=== PATIENT | female | born 1960 | race Caucasian/White ===

== ENCOUNTER 2017-05-08 12:15 | Emergency (ER) | payer MEDICARE, OTHER ==
[2017-05-08] MEDS ORDERED: Famotidine 20 MG Tab PO ONE (12:19)
--- NOTE | 2017-05-08 12:24 | EDM.PDOC ---
ED HPI GENERAL MEDICAL PROBLEM - General Chief Complaint: Allergic Reaction Stated Complaint: ALLERGIC REACTION Time Seen by Provider: 05/08/17 12:15 Source of Information: Reports: Patient, EMS History Limitations: Reports: Other (No call with patient report from the [facility] who referred patient to the ER.) - History of Present Illness INITIAL COMMENTS - FREE TEXT/NARRATIVE: 56 yo female took Keflex today after a tooth cleaning for prophylaxis of a R shoulder replacement. Developed hives and presented to the [facility] and got a dose of subcut Epi, EMS transferred and administered Benedryl 50 mg IV en route. Is now feeling much better, but not yet back to baseline. Denies difficulty breathing or swallowing. No hx of allergy to Keflex. 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) (Benedryl/Epi) - Related Data Allergies Allergy/AdvReac Type Severity Reaction Status Date / Time amoxicillin [From Augmentin] Allergy Vomiting Verified 05/08/17 12:40 cephalexin [From Keflex] Allergy Anaphylactic Verified 05/08/17 12:40 Shock clavulanic acid Allergy Vomiting Verified 05/08/17 12:40 [From Augmentin] infliximab [From Remicade] Allergy Hives Verified 05/08/17 12:40 leflunomide [From Arava] Allergy Hives Verified 05/08/17 12:40 Home Meds: Home Meds Gabapentin [Neurontin] 600 mg PO BEDTIME 05/08/17 [History] [place]-3/DHA/Epa/Fish Oil [Fish Oil 1,400 MG Softgel] 2 each PO BID 05/08/17 [ History] predniSONE [Prednisone] 5 mg PO DAILY 05/08/17 [History] ED ROS ALLERGIC REACTION - Review of Systems Review Of Systems: See Below Constitutional: Reports: No Symptoms HEENT: Reports: No Symptoms Respiratory: Reports: No Symptoms Cardiovascular: Reports: No Symptoms Endocrine: Reports: No Symptoms GI/Abdominal: Reports: No Symptoms : Reports: No Symptoms Musculoskeletal: Reports: No Symptoms Skin: Reports: Erythema, Urticaria Neurological: Reports: No Symptoms Psychiatric: Reports: No Symptoms ED EXAM GENERAL NO PERIP PULSE - Physical Exam Exam: See Below Exam Limited By: No Limitations General Appearance: Alert, WD/WN, Anxious, Mild Distress Eye Exam: Bilateral Eye: Normal Inspection Ears: Normal External Exam, Normal Canal, Hearing Grossly Normal, Normal TMs Nose: Normal Inspection, Normal Mucosa, No Blood Throat/Mouth: Normal Inspection, Normal Lips, Normal Teeth, Normal Oropharynx, Normal Voice, No Airway Compromise Head: Atraumatic, Normocephalic Neck: Normal Inspection, Supple, Non-Tender Respiratory/Chest: No Respiratory Distress, Lungs Clear, Normal Breath Sounds, No Accessory Muscle Use Cardiovascular: Regular Rate, Rhythm, No Edema GI/Abdominal: Soft, Non-Tender Back Exam: Normal Inspection Extremities: Normal Inspection, Normal Range of Motion, Non-Tender, No Pedal Edema Neurological: Alert, Oriented, CN II-XII Intact, Normal Cognition, Normal Gait, No Motor/Sensory Deficits Psychiatric: Normal Affect, Normal Mood Skin Exam: Warm, Dry, Intact, Erythema, Rash (scattered hives) Lymphatic: No Adenopathy Course - Orders/Labs/Meds Meds: Medications Discontinued Medications Generic Name Dose Route Start Last Admin Trade Name Freq PRN Reason Stop Dose Admin Famotidine 40 mg 05/08/17 12:19 05/08/17 12:39 Pepcid PO 05/08/17 12:20 40 mg ONETIME ONE Administration Departure - Departure Time of Disposition: 13:00 Disposition: Home, Self-Care 01 Condition: Good Clinical Impression: Urticaria due to drug allergy - Discharge Information Forms: ED Department Discharge Additional Instructions: Take diphenhydramine 50 mg every 4 hrs as needed today for itching/rash. Take famotidine 20 mg by mouth tonight at bedtime, then every 12 hrs as needed. Avoid Keflex. Discuss with your surgeon if he wants you to be taking antibiotics before dental work, and if so what? Recheck as needed.
[2017-05-08 13:17] VITALS: BP 116/63
== END 2017-05-08 13:10 | disposition home or self-care (01) ==
LOC: FB.ED 12:15
DX: L50.0 Allergic urticaria (principal); T36.1X5A Adverse effect of cephalosporins and other beta-lactam antibiotics, initial encounter; Z88.8 Allergy status to other drugs, medicaments and biological substances; Z79.899 Other long term (current) drug therapy; Z88.1 Allergy status to other antibiotic agents
CPT/HCPCS: 99283; A9270

== ENCOUNTER 2019-04-23 11:13 | Emergency (ER) | payer MEDICARE, OTHER, BC ==
[2019-04-23] MEDS ORDERED: Sodium Chloride 0.9% 1,000 ML IV ONE (11:55)
--- NOTE | 2019-04-23 11:58 | EDM.PDOC ---
ED HPI GENERAL MEDICAL PROBLEM - General Chief Complaint: Neuro Symptoms/Deficits Stated Complaint: DIZZY Time Seen by Provider: 04/23/19 11:30 Source of Information: Reports: Patient History Limitations: Reports: No Limitations - History of Present Illness INITIAL COMMENTS - FREE TEXT/NARRATIVE: 58-year-old female who reports that at approximately 10 AM today she was at the grocery store and she began to feel a little off and was feeling sweaty. She continued to do her shopping and interacted with people in the store but then began to feel somewhat dizzy and more sweaty. She asked he felt off balance. She had no chest pain or shortness of breath at this time. She did not feel that her heart was beating fast or slow at this time. She finished up her shopping a left store at that time and went to her car and sat down for a while. Her symptoms really did not seem to improve she managed to drive herself home. At home she got her 's help to help her into the house and she took off her clothing and laid on her bed under the family under the ceiling fan. At this point she reports that she had room spinning dizziness and had to sit up. She continued to ill dizzy and then had nausea and had multiple dry heaving's in the bathroom. At this point, her called 911. EMS arrived and transported the patient to the emergency department for evaluation. Upon arrival here and upon my evaluation of the patient she is feeling much better. She still has some mild dizziness with changes in position but she reports she feels she denied any pain to me on my evaluation of her. She would rate her pain as a 0/10. Her nausea has resolved. She reports that she felt completely normal prior to this. She has had no prodromal symptoms. There are no other associated signs or symptoms. There are no other modifying factors. Onset: Today (10 AM) Duration: Improving Location: Reports: Other (No real pain at my evaluation the patient. 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 R frontal headache Pain Score (Numeric/FACES): 4 - Related Data Allergies Allergy/AdvReac Type Severity Reaction Status Date / Time amoxicillin [From Augmentin] Allergy Vomiting Verified 04/23/19 11:32 cephalexin [From Keflex] Allergy Anaphylactic Verified 04/23/19 11:32 Shock clavulanic acid Allergy Vomiting Verified 04/23/19 11:32 [From Augmentin] infliximab [From Remicade] Allergy Hives Verified 04/23/19 11:32 leflunomide [From Arava] Allergy Hives Verified 04/23/19 11:32 Home Meds: Home Meds Folic Acid 1 mg PO DAILY 05/08/17 [History] Gabapentin [Neurontin] 600 mg PO BEDTIME 05/08/17 [History] predniSONE [Prednisone] 5 mg PO DAILY 05/08/17 [History] Clindamycin HCl [Cleocin] 600 mg PO ASDIRECTED 04/23/19 [History] Meloxicam 15 mg PO DAILY 04/23/19 [History] Venlafaxine [Effexor XR] 75 mg PO DAILY 04/23/19 [History] buPROPion [buPROPion XL] 150 mg PO DAILY 04/23/19 [History] Past Medical History Musculoskeletal History: Reports: Fibromyalgia, RA Neurological History: Reports: Neuropathy, Peripheral, Other (See Below) Other Neuro History: Insomnia Psychiatric History: Reports: Depression - Past Surgical History Head Surgeries/Procedures: Reports: None HEENT Surgical History: Reports: Tonsillectomy GI Surgical History: Reports: Appendectomy Female Surgical History: Reports: Hysterectomy Musculoskeletal Surgical History: Reports: Shoulder Replacement, Other (See Below) Other Musculoskeletal Surgeries/Procedures:: Right foot surgery Social & Family History - Tobacco Use Smoking Status *Q: Unknown Ever Smoked (Nonsmoker) - Caffeine Use Caffeine Use: Reports: Soda - Alcohol Use Alcohol Use History: No Alcohol Use in Last Twelve Months: No Alcohol Use Comment: No alcohol use for the past 7 years. 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 Patient also on methotrexate weekly) - Physical Exam Exam: See Below Exam Limited By: No Limitations General Appearance: Alert, WD/WN, No Apparent Distress Eye Exam: Bilateral Eye: EOMI, Normal Inspection, PERRL Ears: Normal External Exam, Hearing Grossly Normal Nose: Normal Inspection, Normal Mucosa, No Blood Throat/Mouth: Normal Lips, Normal Voice, No Airway Compromise, Other (Dry mucous membranes) Head Exam: Atraumatic, Normocephalic Neck: Normal Inspection, Supple, Non-Tender, Full Range of Motion Respiratory/Chest: No Respiratory Distress, Lungs Clear, Normal Breath Sounds, No Accessory Muscle Use, Chest Non-Tender Cardiovascular: Normal Peripheral Pulses, Regular Rate, Rhythm, No JVD, No Murmur GI/Abdominal: Normal Bowel Sounds, Soft, Non-Tender, No Organomegaly, No Mass Neuro Exam (Abbreviated): Alert, Oriented, CN II-XII Intact, Normal Cognition, No Motor/Sensory Deficits Back Exam: Normal Inspection, Full Range of Motion Extremities: Normal Inspection, Normal Range of Motion, Non-Tender, No Pedal Edema, Normal Capillary Refill Skin Exam: Warm, Dry, Intact, Normal Color, No Rash EKG INTERPRETATION EKG Date: 04/23/19 Time: 11:18 Rhythm: NSR Rate (Beats/Min): 68 Kiana: Normal P-Wave: Present QRS: Normal ST-T: Normal QT: Normal Comparison: NA - No Prior EKG EKG Interpretation Comments: Normal EKG. Course - Vital Signs Last Recorded V/S: Last Vital Signs Temp 36.4 C 04/23/19 11:13 Pulse 73 04/23/19 11:13 Resp 18 04/23/19 11:13 BP 141/92 H 04/23/19 11:13 Pulse Ox 97 04/23/19 11:13 Orthostatic Blood Pressure [ 128/74 Standing] Orthostatic Blood Pressure [ 150/70 Sitting] Orthostatic Blood Pressure [ 134/79 Supine] - Orders/Labs/Meds Orders: Active Orders 24 hr Category Date Time Status EKG Documentation Completion [RC] ASDIRECTED Care 04/23/19 11:55 Active EKG 12 Lead [EK] Routine Ther 04/23/19 11:54 Ordered Labs: Laboratory Tests 04/23/19 04/23/19 04/23/19 Range/Units 11:25 11:25 11:25 WBC 9.5 (4.5-12.0) X10-3/uL RBC 4.59 (3.23-5.20) x10(6)uL Hgb 13.4 (11.5-15.5) g/dL Hct 40.0 (30.0-51.3) % MCV 87.3 (80-96) fL MCH 29.3 (27.7-33.6) pg MCHC 33.6 (32.2-35.4) g/dL RDW 14.1 (11.5-15.5) % Plt Count 310 (125-369) X10(3)uL MPV 7.9 (7.4-10.4) fL Neut % (Auto) 80.7 (46-82) % Lymph % (Auto) 13.1 (13-37) % [place] % (Auto) 5.0 (4-12) % Eos % (Auto) 1 (1.0-5.0) % Baso % (Auto) 1 (0-2) % Neut # (Auto) 7.7 (1.6-8.3) # Lymph # (Auto) 1.2 (0.6-5.0) # [place] # (Auto) 0.5 (0.0-1.3) # Eos # (Auto) 0.1 (0.0-0.8) # Baso # (Auto) 0.0 (0.0-0.2) # Sodium 137 (135-145) mmol/L Potassium 4.1 (3.5-5.3) mmol/L Chloride 102 (100-110) mmol/L Carbon Dioxide 24 (21-32) mmol/L BUN 14 (7-18) mg/dL Creatinine 0.8 (0.55-1.02) mg/dL Est Cr Clr Drug Dosing 64.58 mL/min Estimated GFR (MDRD) > 60 (>60) BUN/Creatinine Ratio 17.5 (9-20) Glucose 99 (80-116) mg/dL Calcium 9.1 (8.6-10.2) mg/dL Magnesium 2.0 (1.8-2.5) mg/dL Total Bilirubin 0.5 (0.1-1.3) mg/dL AST 26 H (5-25) IU/L ALT 22 (12-36) U/L Alkaline Phosphatase 83 (56-112) IU/L Troponin I (<0.017-0.056) ng/mL C-Reactive Protein < 0.2 L (0.5-0.9) mg/dL Total Protein 7.1 (6.0-8.0) g/dL Albumin 3.6 (3.2-4.6) g/dL Globulin 3.5 g/dL Albumin/Globulin Ratio 1.0 TSH, Ultra Sensitive 1.00 (0.36-3.74) IU/mL Urine Color (YELLOW) Urine Appearance (CLEAR) Urine pH (5.0-6.5) Ur Specific Grant (1.010-1.025) Urine Protein (NEGATIVE) mg/dL Urine Glucose (UA) (NORMAL) mg/dL Urine Ketones (NEGATIVE) mg/dL Urine Occult Blood (NEGATIVE) Urine Nitrite (NEGATIVE) Urine Bilirubin (NEGATIVE) Urine Urobilinogen (NEGATIVE) mg/dL Ur Leukocyte Esterase (NEGATIVE) Urine RBC (0-5) Urine WBC (0-5) Ur Squamous Epith Cells (NS,R,O) Urine Bacteria (NS) 04/23/19 04/23/19 Range/Units 11:25 13:43 WBC (4.5-12.0) X10-3/uL RBC (3.23-5.20) x10(6)uL Hgb (11.5-15.5) g/dL Hct (30.0-51.3) % MCV (80-96) fL MCH (27.7-33.6) pg MCHC (32.2-35.4) g/dL RDW (11.5-15.5) % Plt Count (125-369) X10(3)uL MPV (7.4-10.4) fL Neut % (Auto) (46-82) % Lymph % (Auto) (13-37) % [place] % (Auto) (4-12) % Eos % (Auto) (1.0-5.0) % Baso % (Auto) (0-2) % Neut # (Auto) (1.6-8.3) # Lymph # (Auto) (0.6-5.0) # [place] # (Auto) (0.0-1.3) # Eos # (Auto) (0.0-0.8) # Baso # (Auto) (0.0-0.2) # Sodium (135-145) mmol/L Potassium (3.5-5.3) mmol/L Chloride (100-110) mmol/L Carbon Dioxide (21-32) mmol/L BUN (7-18) mg/dL Creatinine (0.55-1.02) mg/dL Est Cr Clr Drug Dosing mL/min Estimated GFR (MDRD) (>60) BUN/Creatinine Ratio (9-20) Glucose (80-116) mg/dL Calcium (8.6-10.2) mg/dL Magnesium (1.8-2.5) mg/dL Total Bilirubin (0.1-1.3) mg/dL AST (5-25) IU/L ALT (12-36) U/L Alkaline Phosphatase (56-112) IU/L Troponin I < 0.017 L (<0.017-0.056) ng/mL C-Reactive Protein (0.5-0.9) mg/dL Total Protein (6.0-8.0) g/dL Albumin (3.2-4.6) g/dL Globulin g/dL Albumin/Globulin Ratio TSH, Ultra Sensitive (0.36-3.74) IU/mL Urine Color Yellow (YELLOW) Urine Appearance Clear (CLEAR) Urine pH 5.0 (5.0-6.5) Ur Specific Grant 1.015 (1.010-1.025) Urine Protein Negative (NEGATIVE) mg/dL Urine Glucose (UA) Normal (NORMAL) mg/dL Urine Ketones Negative (NEGATIVE) mg/dL Urine Occult Blood Negative (NEGATIVE) Urine Nitrite Negative (NEGATIVE) Urine Bilirubin Negative (NEGATIVE) Urine Urobilinogen Normal (NEGATIVE) mg/dL Ur Leukocyte Esterase Negative (NEGATIVE) Urine RBC 0-5 (0-5) Urine WBC 0-5 (0-5) Ur Squamous Epith Cells Occasional (NS,R,O) Urine Bacteria Rare H (NS) Meds: Medications Discontinued Medications Generic Name Dose Route Start Last Admin Trade Name Freq PRN Reason Stop Dose Admin Sodium Chloride 1,000 mls @ 999 mls/hr 04/23/19 11:55 04/23/19 12:11 Normal Saline IV 04/23/19 12:55 999 mls/hr .BOLUS ONE Administration - Re-Assessments/Exams Free Text/Narrative Re-Assessment/Exam: 04/23/19 14:17: Patient does have a mild right-sided headache but no other symptoms. Her nausea has completely resolved. Her dizziness has completely resolved. She has been ambulating around the emergency department and really wants to go home. Her blood tests are reassuringly normal. Her EKG is reassuringly normal. She has remained in a normal sinus rhythm while being monitored here. She did receive a 1 L bolus of normal saline and her urine was somewhat concentrated and there had have been a component of dehydration causing this patient's episode. It appears that this episode was a vasovagal type episode. Apparently, the patient also received Zofran 4 mg ODT and Versed 0.5 IM by the EMS staff on the way in. In any event, this episode seems to have passed and her exam, blood tests urine tests and EKG appear normal and the patient wishes to be discharged. I have advised follow-up with her primary doctor and to increase her fluid intake. Departure - Departure Time of Disposition: 14:20 Disposition: Home, Self-Care 01 Condition: Good (Stable) Clinical Impression: Vasovagal episode, Dizziness Vomiting Qualifiers: Vomiting type: unspecified Vomiting Intractability: non-intractable Nausea presence: with nausea Qualified Code(s): R11.2 - Nausea with vomiting, unspecified - Discharge Information Instructions: Nausea and Vomiting, Adult, [id number], Dizziness, [id number] , Near-Syncope, [id number] Referrals: Mishel Everett, [facility] [Primary Care Provider] - Forms: ED Department Discharge Additional Instructions: Your blood tests, urine test and EKG were reassuringly normal. As we discussed, you appear to have had a vasovagal episode or near passout spell. I am unsure what caused this episode but it appears to be associated with no significant problem. You should rest. You should drink plenty of fluids. Follow-up with your primary doctor. Back to the emergency department for worsening dizziness, unrelenting vomiting, fever, worsening headache, recurrent pass out spells or near pass out spells or any other concerning sign or symptom. - My Orders Last 24 Hours: My Active Orders 04/23/19 11:54 EKG 12 Lead [EK] Routine 04/23/19 11:55 EKG Documentation Completion [RC] ASDIRECTED - Assessment/Plan Last 24 Hours: My Active Orders 04/23/19 11:54 EKG 12 Lead [EK] Routine 04/23/19 11:55 EKG Documentation Completion [RC] ASDIRECTED
[2019-04-24 11:38] VITALS: BP 142/75
== END 2019-04-23 14:30 | disposition home or self-care (01) ==
LOC: FB.ED 11:13
DX: R55 Syncope and collapse (principal); R11.2 Nausea with vomiting, unspecified; F32.9 Major depressive disorder, single episode, unspecified; Z88.1 Allergy status to other antibiotic agents; Z88.8 Allergy status to other drugs, medicaments and biological substances; Z79.899 Other long term (current) drug therapy; Z98.890 Other specified postprocedural states; Z90.710 Acquired absence of both cervix and uterus
CPT/HCPCS: 80053; 81001; 83735; 84443; 84484; 85025; 86140; 93005; 96360; 99284; J7030

== ENCOUNTER 2020-04-12 15:57 | Inpatient (IN) | payer MEDICARE, OTHER ==
--- NOTE | 2020-04-12 16:08 | EDM.PDOC ---
ED HPI GENERAL MEDICAL PROBLEM - General Stated Complaint: VOMITING Time Seen by Provider: 04/12/20 16:08 Source of Information: Reports: Patient History Limitations: Reports: No Limitations - History of Present Illness INITIAL COMMENTS - FREE TEXT/NARRATIVE: 59-year-old female who had acute onset of epigastric and right upper quadrant abdominal pain with some radiation into her right flank at approximately noon today. She had felt completely well prior to this. She had been eating and drinking normally. She states that she cooked a brunch that was a skillet-type breakfast and she ate that at noon with her mother and almost immediately after eating the meal she developed the pain in her upper abdomen and radiating to the right side. This pain has been persistent since that time and has actually worsened over time with vomiting 1. She reports the pain as a 10/10. She has had some diaphoresis associated with this. She has ongoing nausea but no further vomiting after the initial emesis. She has had no diarrhea. She has reported normal bowel movements. No dysuria or hematuria. No cough. No nasal congestion. No sore throat. She has had no fevers or chills. No alleviating factors. The pain is worse with palpation and with movement. There are no other associated signs or symptoms. There are no other modifying factors. 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) (Nothing) Upper Abdomen Pain Score (Numeric/FACES): 10 - Related Data Allergies Allergy/AdvReac Type Severity Reaction Status Date / Time amoxicillin [From Augmentin] Allergy Vomiting Verified 04/23/19 11:32 cephalexin [From Keflex] Allergy Anaphylactic Verified 04/23/19 11:32 Shock Cephalosporins Allergy Anaphylactic Verified 04/12/20 16:55 Shock clavulanic acid Allergy Vomiting Verified 04/23/19 11:32 [From Augmentin] infliximab [From Remicade] Allergy Hives Verified 04/12/20 16:55 leflunomide [From Arava] Allergy Hives Verified 04/12/20 16:55 Home Meds: Home Meds Folic Acid 1 mg PO DAILY 05/08/17 [History] Gabapentin [Neurontin] 600 mg PO BEDTIME 05/08/17 [History] predniSONE [Prednisone] 5 mg PO DAILY 05/08/17 [History] Meloxicam 15 mg PO DAILY 04/23/19 [History] Venlafaxine [Effexor XR] 75 mg PO DAILY 04/23/19 [History] buPROPion [buPROPion XL] 150 mg PO DAILY 04/23/19 [History] Past Medical History Musculoskeletal History: Reports: Fibromyalgia, RA Other Musculoskeletal History: hx fx L foot, Neurological History: Reports: Neuropathy, Peripheral, Other (See Below) Other Neuro History: Insomnia Psychiatric History: Reports: Anxiety, Depression Endocrine/Metabolic History: Reports: Obesity/BMI 30+ - Infectious Disease History Infectious Disease History: Reports: Chicken Pox - Past Surgical History HEENT Surgical History: Reports: Tonsillectomy GI Surgical History: Reports: Appendectomy, Hernia, Inguinal (Right inguinal hernia repair) Female Surgical History: Reports: Hysterectomy Musculoskeletal Surgical History: Reports: Shoulder Replacement, Other (See Below) Other Musculoskeletal Surgeries/Procedures:: Right foot surgery Social & Family History - Tobacco Use Smoking Status *Q: Unknown Ever Smoked (Nonsmoker) - Caffeine Use Caffeine Use: Reports: Soda - Alcohol Use Alcohol Use History: No - Living Situation & Occupation Living situation: Reports: 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) ED ROS GENERAL - Review of Systems Review Of Systems: See Below Constitutional: Reports: Diaphoresis HEENT: Reports: No Symptoms Respiratory: Reports: No Symptoms Cardiovascular: Reports: No Symptoms GI/Abdominal: Reports: Nausea, Vomiting : Reports: Flank Pain (Mild right upper flank pain) Musculoskeletal: Reports: No Symptoms Skin: Reports: Diaphoresis Neurological: Reports: No Symptoms Hematologic/Lymphatic: Reports: No Symptoms Immunologic: Reports: Other (She is on biologic for her rheumatoid arthritis as well as methotrexate and prednisone) ED EXAM, GI/ABD - Physical Exam Exam: See Below Exam Limited By: No Limitations General Appearance: Alert, WD/WN, Moderate Distress (Appears in acute pain.) Eyes: Bilateral: Normal Appearance, EOMI Ears: Normal External Exam, Hearing Grossly Normal Nose: Normal Inspection, Normal Mucosa, No Blood Throat/Mouth: Normal Inspection, Normal Oropharynx, Normal Voice, No Airway Compromise Head: Atraumatic, Normocephalic Neck: Normal Inspection, Supple, Non-Tender, Full Range of Motion Respiratory/Chest: No Respiratory Distress, Lungs Clear, Normal Breath Sounds, No Accessory Muscle Use, Chest Non-Tender Cardiovascular: Normal Peripheral Pulses, Regular Rate, Rhythm, No Murmur GI/Abdominal Exam: Normal Bowel Sounds, Soft, No Mass, Guarding, Tender (In the epigastrium and right upper quadrant.). No: Rigid Back Exam: Normal Inspection, Full Range of Motion Extremities: Normal Inspection, Normal Range of Motion, Non-Tender, No Pedal Edema, Normal Capillary Refill Neurological: Alert, Oriented, CN II-XII Intact, Normal Cognition, No Motor/Sensory Deficits Psychiatric: Normal Affect Skin Exam: Warm, Dry, Intact, Normal Color, No Rash Lymphatic: No Adenopathy Course - Vital Signs Last Recorded V/S: Last Vital Signs Temp 36.4 C 04/12/20 16:00 Pulse 86 04/12/20 16:00 Resp 20 04/12/20 16:00 BP 124/84 04/12/20 16:00 Pulse Ox 99 04/12/20 16:00 - Orders/Labs/Meds Orders: Active Orders 24 hr Category Date Time Status Admission Status [Patient Status] [ADT] Routine ADT 04/12/20 20:20 Ordered Communication Order [RC] STAT Care 04/12/20 16:17 Active Abdomen Pelvis w Cont [CT] Stat Exams 04/12/20 17:41 Taken Sodium Chloride 0.9% [Normal Saline] 1,000 ml Med 04/12/20 16:30 Active IV ASDIRECTED Sodium Chloride 0.9% [Saline Flush] Med 04/12/20 16:15 Active 10 ml FLUSH ASDIRECTED PRN Peripheral IV Insertion Adult [OM.PC] Routine Oth 04/12/20 16:15 Ordered Medication Orders Sodium Chloride (Normal Saline) 1,000 mls @ 150 mls/hr IV ASDIRECTED AISHWARYA Last Admin: 04/12/20 16:56 Dose: 150 mls/hr Documented by: TRA Sodium Chloride (Saline Flush) 10 ml FLUSH ASDIRECTED PRN PRN Reason: Keep Vein Open Last Admin: 04/12/20 16:20 Dose: 10 ml Documented by: TRA Labs: Laboratory Tests 08/04/12/20 04/12/20 Range/Units 16:30 16:30 16:30 WBC 10.6 (4.5-12.0) X10-3/uL RBC 4.74 (3.23-5.20) x10(6)uL Hgb 13.4 (11.5-15.5) g/dL Hct 42.0 (30.0-51.3) % MCV 88.6 (80-96) fL MCH 28.2 (27.7-33.6) pg MCHC 31.8 L (32.2-35.4) g/dL RDW 14.4 (11.5-15.5) % Plt Count 336 (125-369) X10(3)uL MPV 7.5 (7.4-10.4) fL Neut % (Auto) 81.9 (46-82) % Lymph % (Auto) 11.7 L (13-37) % Dukes % (Auto) 5.3 (4-12) % Eos % (Auto) 1 (1.0-5.0) % Baso % (Auto) 0 (0-2) % Neut # (Auto) 8.7 H (1.6-8.3) # Lymph # (Auto) 1.2 (0.6-5.0) # Dukes # (Auto) 0.6 (0.0-1.3) # Eos # (Auto) 0.1 (0.0-0.8) # Baso # (Auto) 0.0 (0.0-0.2) # Sodium 143 (135-145) mmol/L Potassium 4.0 (3.5-5.3) mmol/L Chloride 103 (100-110) mmol/L Carbon Dioxide 31 (21-32) mmol/L BUN 13 (7-18) mg/dL Creatinine 0.8 (0.55-1.02) mg/dL Est Cr Clr Drug Dosing TNP Estimated GFR (MDRD) > 60 (>60) BUN/Creatinine Ratio 16.3 (9-20) Glucose 118 H (80-116) mg/dL Calcium 9.6 (8.6-10.2) mg/dL Magnesium 2.2 (1.8-2.5) mg/dL Total Bilirubin 0.4 (0.1-1.3) mg/dL AST 21 D (5-25) IU/L ALT 31 D (12-36) U/L Alkaline Phosphatase 85 (56-112) IU/L C-Reactive Protein 0.4 L (0.5-0.9) mg/dL Total Protein 7.5 (6.0-8.0) g/dL Albumin 4.0 (3.2-4.6) g/dL Globulin 3.5 g/dL Albumin/Globulin Ratio 1.1 Lipase 103 (73-393) U/L Meds: Medications Generic Name Dose Route Start Last Admin Trade Name Freq PRN Reason Stop Dose Admin Sodium Chloride 1,000 mls @ 150 mls/hr 04/12/20 16:30 04/12/20 16:56 Normal Saline IV 150 mls/hr ASDIRECTED AISHWARYA Administration Sodium Chloride 10 ml 04/12/20 16:15 04/12/20 16:20 Saline Flush FLUSH 10 ml ASDIRECTED PRN Administration Keep Vein Open Discontinued Medications Generic Name Dose Route Start Last Admin Trade Name Freq PRN Reason Stop Dose Admin Hydromorphone HCl 1 mg 04/12/20 16:16 04/12/20 16:31 Dilaudid IVPUSH 04/12/20 16:17 1 mg ONETIME ONE Administration Sodium Chloride 500 mls @ 999 mls/hr 04/12/20 16:16 04/12/20 16:30 Normal Saline IV 04/12/20 16:46 999 mls/hr .BOLUS ONE Administration Iopamidol 100 ml 04/12/20 17:54 04/12/20 18:11 Isovue-370 (76%) IV 04/12/20 17:55 75 ml . DIRECTED ONE Administration Ondansetron HCl 4 mg 04/12/20 16:16 04/12/20 16:30 Zofran IVPUSH 04/12/20 16:17 4 mg ONETIME ONE Administration Ondansetron HCl 4 mg 04/12/20 17:41 04/12/20 18:08 Zofran IVPUSH 04/12/20 17:42 4 mg ONETIME ONE Administration - Radiology Interpretation Free Text/Narrative:: CT scan of abdomen and pelvis showed intermediate grade small bowel obstruction with suspected transition point in the left mid abdomen. - Re-Assessments/Exams Free Text/Narrative Re-Assessment/Exam: 04/12/20 17:30: Patient with improvement in her abdominal pain. She still has nausea. Her blood tests are all reassuringly normal. There are no LFT abnormalities or elevation of her lipase. She does have reproducible pain and her mid upper abdomen and her right upper quadrant. There is no rigidity. I will send the patient for CT scan of her abdomen and pelvis to further evaluate this. I discussed this with the patient and she is in agreement with this plan. 04/12/20 19:30: Patient remains somewhat nauseated and still has belching. She has had no more vomiting. Her pain is currently had a 4-5/10. We have been formed by the radiology group, [facility], that they have had multiple emergency cases and that has caused a delay in the patient CT scan being read. We are awaiting the results of the CT scan. I have reviewed the CT scan and am concerned that there is a small bowel obstruction. She has remained hemodynamically stable. I will continue NPO status and IV fluid hydration. 04/12/20 20:05: CT scan of the abdomen and pelvis showed evidence of an intermediate grade small bowel obstruction with suspected transition point in the left mid abdomen. There was no free air. There was distended proximal small bowel and stomach. I will discuss this with the patient. She will need admission for bowel rest and IV fluids and surgical consultation tomorrow. 04/12/20 20:25: I discussed all of this with the patient and she has been followed by Dr. Flaherty in the past and she actually called him and discussed this with him and I discussed the case with him and although he is out of town and production hand, his recommendation was that the patient be admitted and he has convinced her to do this. I will admit the patient with bowel rest (NPO except ice chips that was okayed by Dr. Flaherty) and continued IV fluids and pain/nausea management. I am placing mission orders. Dr. Tucker will assume care the patient at 7 AM on 04/13/2020. Dr. Garland is to be consult in the morning per Dr. Flaherty. I will also give the patient a stress dose of steroids (Solu-Cortef 100 mg IV) Departure - Departure Time of Disposition: 20:21 Disposition: Refer to Observation Condition: Fair (Stable) Clinical Impression: Small bowel obstruction, Immunocompromised state Abdominal pain Qualifiers: Abdominal location: upper abdomen, unspecified Qualified Code(s): R10.10 - Upper abdominal pain, unspecified - Discharge Information Referrals: Mishel Everett, HEAT SET OPERATOR [Primary Care Provider] - Sepsis Event Note (ED) - Focused Exam Vital Signs: Vital Signs Temp Pulse Resp BP Pulse Ox 04/12/20 16:00 36.4 C 86 20 124/84 99 - My Orders Last 24 Hours: My Active Orders 04/12/20 16:15 Sodium Chloride 0.9% [Saline Flush] 10 ml FLUSH ASDIRECTED PRN Peripheral IV Insertion Adult [OM.PC] Routine 04/12/20 16:17 Communication Order [RC] STAT 04/12/20 16:30 Sodium Chloride 0.9% [Normal Saline] 1,000 ml IV ASDIRECTED 04/12/20 17:41 Abdomen Pelvis w Cont [CT] Stat 04/12/20 20:20 Admission Status [Patient Status] [ADT] Routine - Assessment/Plan Last 24 Hours: My Active Orders 04/12/20 16:15 Sodium Chloride 0.9% [Saline Flush] 10 ml FLUSH ASDIRECTED PRN Peripheral IV Insertion Adult [OM.PC] Routine 04/12/20 16:17 Communication Order [RC] STAT 04/12/20 16:30 Sodium Chloride 0.9% [Normal Saline] 1,000 ml IV ASDIRECTED 04/12/20 17:41 Abdomen Pelvis w Cont [CT] Stat 04/12/20 20:20 Admission Status [Patient Status] [ADT] Routine
[2020-04-12] MEDS ORDERED: Sodium Chloride 0.9% 10 ML Syringe FLUSH PRN (16:15)
[2020-04-12] MEDS ORDERED: HYDROmorphone 2 MG/ML SDV IVPUSH ONE (16:16)
[2020-04-12] MEDS ORDERED: Ondansetron 4 MG/2 ML SDV IVPUSH ONE ×2 (16:16→17:41)
[2020-04-12] MEDS ORDERED: Sodium Chloride 0.9% 500 ML IV ONE (16:16)
[2020-04-12] MEDS: Sodium Chloride 0.9% 1,000 ML IV SCH (16:56)
[2020-04-12] MEDS ORDERED: Iopamidol 755 Mg/ML 100 ML Bottle IV ONE (17:54)
[2020-04-12] MEDS ORDERED: Hydrocortisone Sodium Succinate 100 MG/2 ML SDV IVPUSH ONE (20:33)
[2020-04-12] MEDS ORDERED: Ondansetron 4 MG/2 ML SDV IV PRN (20:35)
[2020-04-12] MEDS: hydrOXYzine HCl 50 MG/ML SDV IM PRN (22:12)
[2020-04-12] MEDS: HYDROmorphone 2 MG/ML SDV IVPUSH PRN (22:12)
[2020-04-13] MEDS: Sodium Chloride 0.9% 1,000 ML IV SCH ×3 (00:21→13:57)
[2020-04-13] MEDS: HYDROmorphone 2 MG/ML SDV IVPUSH PRN ×3 (02:13→08:23)
[2020-04-13] MEDS ORDERED: Ondansetron 4 MG/2 ML SDV IVPUSH PRN (05:45)
--- NOTE | 2020-04-13 07:59 | PCM.HP.2 ---
H&P History of Present Illness - General Date of Service: 04/13/20 Admit Problem/Dx: Admission Diagnosis/Problem Admission Diagnosis/Problem Small bowel obstruction Source of Information: Patient History Limitations: Reports: No Limitations - History of Present Illness Initial Comments - Free Text/Narative: This is a 59-year-old female patient that had a breakfast skillet with eggs, hashbrowns, sausage and cheese and afterwards started having severe abdominal epigastric pain. She said she had 2 diarrhea stools in the morning before her breakfast. She came to the ER by car because she thought she is on a gallbladder attack. She says she did talk to Dr. Flaherty because he has done operations on her in the past. She had a CT scan that showed a small bowel structure. She's had a hernia repair and hysterectomy in the past. She has abdominal pain with nausea. She vomited once this morning. She's not had any flatus or BM. She's never the small bowel obstruction before. She denies dysuria, pyuria, hematuria. She was having some sweating but no fevers. ER note reviewed. Upper Abdomen Pain Score (Numeric/FACES): 4 - Related Data Allergies/Adverse Reactions: Allergies Allergy/AdvReac Type Severity Reaction Status Date / Time amoxicillin [From Augmentin] Allergy Vomiting Verified 04/23/19 11:32 cephalexin [From Keflex] Allergy Anaphylactic Verified 04/23/19 11:32 Shock Cephalosporins Allergy Anaphylactic Verified 04/12/20 16:55 Shock clavulanic acid Allergy Vomiting Verified 04/23/19 11:32 [From Augmentin] infliximab [From Remicade] Allergy Hives Verified 04/12/20 16:55 leflunomide [From Arava] Allergy Hives Verified 04/12/20 16:55 Home Medications: Home Meds Folic Acid 1 mg PO DAILY 05/08/17 [History] Gabapentin [Neurontin] 600 mg PO BEDTIME 05/08/17 [History] predniSONE [Prednisone] 5 mg PO DAILY 05/08/17 [History] Meloxicam 15 mg PO DAILY 04/23/19 [History] Venlafaxine [Effexor XR] 75 mg PO DAILY 04/23/19 [History] buPROPion [buPROPion XL] 150 mg PO DAILY 04/23/19 [History] Past Medical History HEENT History: Reports: Cataract Gastrointestinal History: Reports: None Genitourinary History: Reports: None 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 OB/BYN History: Musculoskeletal History: Reports: Fracture, Fibromyalgia, RA Other Musculoskeletal History: hx fx L foot, R ankle fx, Neurological History: Reports: Concussion, Neuropathy, Peripheral, Other (See Below) Other Neuro History: Insomnia Psychiatric History: Reports: Depression Endocrine/Metabolic History: Reports: Obesity/BMI 30+ Hematologic History: Reports: None Immunologic History: Reports: None Oncologic (Cancer) History: Reports: None - Infectious Disease History Infectious Disease History: Reports: Chicken Pox - Past Surgical History Head Surgeries/Procedures: Reports: None HEENT Surgical History: Reports: Tonsillectomy GI Surgical History: Reports: Appendectomy, Colonoscopy, Hernia, Inguinal Female Surgical History: Reports: Hysterectomy Musculoskeletal Surgical History: Reports: Shoulder Replacement, Other (See Below) Other Musculoskeletal Surgeries/Procedures:: Right foot surgery, R 2nd digit knuckle surgery, R shoulder Social & Family History - Family History Cardiac: Reports: CAD Musculoskeletal: Reports: RA Endocrine/Metabolic: Reports: Diabetes, type II - Tobacco Use Smoking Status *Q: Former Smoker Years of Tobacco use: 30 Used Tobacco, but Quit: Yes Month/Year Tobacco Last Used: 2004 Second Hand Smoke Exposure: No - Caffeine Use Caffeine Use: Reports: Soda - Recreational Drug Use Recreational Drug Use: No - Living Situation & Occupation Living situation: Reports: 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 Denies: Black Stool, Diarrhea, Flatus Genitourinary: Reports: No Symptoms Musculoskeletal: Reports: No Symptoms Skin: Reports: No Symptoms Psychiatric: Reports: No Symptoms Neurological: Reports: No Symptoms Hematologic/Lymphatic: Reports: No Symptoms Immunologic: Reports: No Symptoms Exam - Exam Exam: See Below - Vital Signs Vital Signs: Last Vital Signs Temp 98 F 04/13/20 02:15 Pulse 83 04/13/20 02:15 Resp 18 04/13/20 06:00 BP 149/87 H 04/13/20 02:15 Pulse Ox 96 04/13/20 02:15 Weight: 188 lb 6.4 oz - Exam General: Alert, Oriented HEENT: PERRLA, Hearing Intact, Posterior Pharynx Clear, TMs Clear Neck: Supple, Trachea Midline Lungs: Clear to Auscultation, Normal Respiratory Effort. No: Crackles, Rales, Rhonchi Cardiovascular: Regular Rate, Regular Rhythm. No: Systolic Murmur, Diastolic Murmur GI/Abdominal Exam: Distended, Tender, Other (Mildly hyperactive bowel sounds). No: Guarding, Rigid, Rebound Back Exam: Normal Inspection Extremities: Normal Inspection, Non-Tender, No Pedal Edema Skin: Warm, Dry, Intact Neuro Extensive - Mental Status: Alert, Oriented x3, Normal Cognition Psychiatric: Alert, Normal Affect, Normal Mood - Patient Data Lab Results Last 24 hrs: Laboratory Results - last 24 hr 04/12/20 04/12/20 04/12/20 Range/Units 16:30 16:30 16:30 WBC 10.6 (4.5-12.0) X10-3/uL RBC 4.74 (3.23-5.20) x10(6)uL Hgb 13.4 (11.5-15.5) g/dL Hct 42.0 (30.0-51.3) % MCV 88.6 (80-96) fL MCH 28.2 (27.7-33.6) pg MCHC 31.8 L (32.2-35.4) g/dL RDW 14.4 (11.5-15.5) % Plt Count 336 (125-369) X10(3)uL MPV 7.5 (7.4-10.4) fL Neut % (Auto) 81.9 (46-82) % Lymph % (Auto) 11.7 L (13-37) % [place] % (Auto) 5.3 (4-12) % Eos % (Auto) 1 (1.0-5.0) % Baso % (Auto) 0 (0-2) % Neut # (Auto) 8.7 H (1.6-8.3) # Lymph # (Auto) 1.2 (0.6-5.0) # [place] # (Auto) 0.6 (0.0-1.3) # Eos # (Auto) 0.1 (0.0-0.8) # Baso # (Auto) 0.0 (0.0-0.2) # Sodium 143 (135-145) mmol/L Potassium 4.0 (3.5-5.3) mmol/L Chloride 103 (100-110) mmol/L Carbon Dioxide 31 (21-32) mmol/L BUN 13 (7-18) mg/dL Creatinine 0.8 (0.55-1.02) mg/dL Est Cr Clr Drug Dosing TNP Estimated GFR (MDRD) > 60 (>60) BUN/Creatinine Ratio 16.3 (9-20) Glucose 118 H (80-116) mg/dL Calcium 9.6 (8.6-10.2) mg/dL Magnesium 2.2 (1.8-2.5) mg/dL Total Bilirubin 0.4 (0.1-1.3) mg/dL AST 21 D (5-25) IU/L ALT 31 D (12-36) U/L Alkaline Phosphatase 85 (56-112) IU/L C-Reactive Protein 0.4 L (0.5-0.9) mg/dL Total Protein 7.5 (6.0-8.0) g/dL Albumin 4.0 (3.2-4.6) g/dL Globulin 3.5 g/dL Albumin/Globulin Ratio 1.1 Lipase 103 (73-393) U/L 24 Range/Units 06:30 WBC 10.1 (4.5-12.0) X10-3/uL RBC 4.17 (3.23-5.20) x10(6)uL Hgb 12.1 (11.5-15.5) g/dL Hct 37.3 (30.0-51.3) % MCV 89.4 (80-96) fL MCH 29.0 (27.7-33.6) pg MCHC 32.4 (32.2-35.4) g/dL RDW 14.3 (11.5-15.5) % Plt Count 269 (125-369) X10(3)uL MPV 7.2 L (7.4-10.4) fL Neut % (Auto) 80.5 (46-82) % Lymph % (Auto) 10.8 L (13-37) % [place] % (Auto) 7.9 (4-12) % Eos % (Auto) 1 (1.0-5.0) % Baso % (Auto) 0 (0-2) % Neut # (Auto) 8.1 (1.6-8.3) # Lymph # (Auto) 1.1 (0.6-5.0) # [place] # (Auto) 0.8 (0.0-1.3) # Eos # (Auto) 0.1 (0.0-0.8) # Baso # (Auto) 0.0 (0.0-0.2) # Sodium (135-145) mmol/L Potassium (3.5-5.3) mmol/L Chloride (100-110) mmol/L Carbon Dioxide (21-32) mmol/L BUN (7-18) mg/dL Creatinine (0.55-1.02) mg/dL Est Cr Clr Drug Dosing Estimated GFR (MDRD) (>60) BUN/Creatinine Ratio (9-20) Glucose (80-116) mg/dL Calcium (8.6-10.2) mg/dL Magnesium (1.8-2.5) mg/dL Total Bilirubin (0.1-1.3) mg/dL AST (5-25) IU/L ALT (12-36) U/L Alkaline Phosphatase (56-112) IU/L C-Reactive Protein (0.5-0.9) mg/dL Total Protein (6.0-8.0) g/dL Albumin (3.2-4.6) g/dL Globulin g/dL Albumin/Globulin Ratio Lipase (73-393) U/L Result Diagrams: 04/13/20 06:30 04/12/20 16:30 Imaging Impressions Last 24 hrs: CT abdomen-intermedius small bowel obstruction, diverticulosis without evidence of diverticulitis. Sepsis Event Note - Evaluation Sepsis Screening Result: No Definite Risk - Focused Exam Vital Signs: Vital Signs Temp Pulse Resp BP Pulse Ox 04/13/20 06:00 18 04/13/20 02:15 98 F 83 18 149/87 H 96 04/12/20 21:47 62 18 123/74 95 04/12/20 21:07 97.4 F 78 18 171/81 H 100 04/12/20 20:30 80 18 135/72 100 - Problem List (1) Rheumatoid arthritis SNOMED Code(s): 97383590 ICD Code: M06.9 - RHEUMATOID ARTHRITIS, UNSPECIFIED Status: Acute Current Visit: Yes (2) Small bowel obstruction SNOMED Code(s): 326399800 ICD Code: K56.609 - UNSP INTESTNL OBST, UNSP TO PARTIAL VERSUS COMPLETE OBST Status: Acute Current Visit: Yes (3) Vomiting SNOMED Code(s): 653582814 ICD Code: R11.10 - VOMITING, UNSPECIFIED Status: Acute Current Visit: No Qualifiers: Vomiting type: unspecified Vomiting Intractability: non-intractable Nausea presence: with nausea Qualified Code(s): R11.2 - Nausea with vomiting, unspecified Problem List Initiated/Reviewed/Updated: Yes Orders Last 24hrs: Active Orders 24 hr Category Date Time Status Admission Status [Patient Status] [ADT] Routine ADT 04/12/20 20:20 Active Bedrest Bathroom Privileges [RC] ASDIRECTED Care 04/12/20 20:35 Active Communication Order [RC] STAT Care 04/12/20 16:17 Active Height and Weight [RC] UPON Care 04/12/20 20:35 Active Intake and Output [RC] 06,14,22 Care 04/12/20 20:36 Active May Shower [RC] ASDIRECTED Care 04/12/20 20:35 Active Oxygen Therapy [RC] PRN Care 04/12/20 20:36 Active Vital Signs [RC] Q4H Care 04/12/20 20:36 Active Nothing per Oral Now Diet [DIET] Diet 04/12/20 Dinner Active Abdomen Pelvis w Cont [CT] Stat Exams 04/12/20 17:41 Taken NG Tube Placement [CR] Routine Exams 04/13/20 07:51 Ordered COMPREHENSIVE METABOLIC PN,CMP [CHEM] AM Lab 04/13/20 06:30 Received MAGNESIUM [CHEM] AM Lab 04/13/20 06:30 Received HYDROmorphone [Dilaudid] Med 04/12/20 20:35 Active 0.5 mg IVPUSH Q2H PRN Ondansetron [Zofran] Med 04/13/20 05:45 Active 4 mg IVPUSH Q4H PRN Sodium Chloride 0.9% [Normal Saline] 1,000 ml Med 04/12/20 16:30 Active IV ASDIRECTED Sodium Chloride 0.9% [Saline Flush] Med 04/12/20 16:15 Active 10 ml FLUSH ASDIRECTED PRN hydrOXYzine HCL [Vistaril] Med 04/12/20 21:56 Active 50 mg IM Q8H PRN Peripheral IV Insertion Adult [OM.PC] Routine Oth 04/12/20 16:15 Ordered Resuscitation Status Routine Resus Stat 04/12/20 20:35 Ordered Medication Orders Hydromorphone HCl (Dilaudid) 0.5 mg IVPUSH Q2H PRN PRN Reason: Pain (severe 7-10) Last Admin: 04/13/20 05:39 Dose: 0.5 mg Documented by: Admin: 04/13/20 02:13 Dose: 0.5 mg Documented by: Admin: 04/12/20 22:12 Dose: 0.5 mg Documented by: MARY Hydroxyzine HCl (Vistaril) 50 mg IM Q8H PRN PRN Reason: Nausea Last Admin: 04/12/20 22:12 Dose: 50 mg Documented by: MARY Sodium Chloride (Normal Saline) 1,000 mls @ 150 mls/hr IV ASDIRECTED AISHWARYA Last Admin: 04/13/20 06:13 Dose: 150 mls/hr Documented by: Infusion: 04/13/20 06:13 Dose: 150 mls/hr Documented by: Admin: 04/13/20 00:21 Dose: 150 mls/hr Documented by: Infusion: 04/12/20 23:37 Dose: 150 mls/hr Documented by: Admin: 04/12/20 16:56 Dose: 150 mls/hr Documented by: TRA Ondansetron HCl (Zofran) 4 mg IVPUSH Q4H PRN PRN Reason: Nausea/Vomiting Last Admin: 04/13/20 05:52 Dose: 4 mg Documented by: MARY Sodium Chloride (Saline Flush) 10 ml FLUSH ASDIRECTED PRN PRN Reason: Keep Vein Open Last Admin: 04/12/20 16:20 Dose: 10 ml Documented by: TRA Assessment/Plan Comment:: 1. Patient was admitted for observation but I will change that to inpatient 2. Nothing by mouth with NG tube to low intermittent suction 3 Zofran for nausea and Dilantin for pain IV. 4. Hold medications by mouth 5. Consult [facility] surgery I called and left a message with Dr. Garland 6. Love[place] her surgery sees him in case they wanted to some today for prophylaxis for VTE 7. Full code. - Mortality Measure Prognosis:: Good
[2020-04-13] MEDS: hydrOXYzine HCl 50 MG/ML SDV IM PRN (08:23)
[2020-04-13] MEDS ORDERED: Lidocaine 2% HCl 6 ML JEL.PF.APP ONE (09:36)
--- NOTE | 2020-04-13 12:25 | CR ---
INDICATION: Small bowel obstruction. ABDOMEN FOR NG TUBE PLACEMENT: A single view of the abdomen was obtained including the lower chest and revealed a nasogastric tube in place with its tip coiled in the fundus of the stomach. It could be advanced approximately 10 cm for better positioning, as felt to be necessary clinically. Somewhat dilated loops of proximal small bowel are noted. Overall, this appears similar to the CT scan of 04/12/20. [facility]
--- NOTE | 2020-04-13 14:17 | CONS ---
DATE OF CONSULTATION: 04/13/2020 HISTORY OF PRESENT ILLNESS: This 59-year-old female is seen today in consultation at the request of Dr. Tucker. This patient presented to the emergency room yesterday with complaints of abdominal pain and vomiting. She had 2 diarrhea stools earlier in the morning, but noted the pain developed in the early afternoon and presented with persistence of this pain and multiple episodes of vomiting. The patient was noted to have some abdominal distention and tenderness and was evaluated with a CT scan which identified findings consistent with a mid small bowel obstruction. Other than some diverticulosis, the remainder of the CT scan was unremarkable. The patient has now been hospitalized on IV hydration and n.p.o. since yesterday evening. The patient since hospitalization has not had any bowel function or flatus. She notes her abdominal pain has improved now, but because of persistent vomiting this morning, she did have to have an NG tube placed which yielded 400 mL of fluid. PAST MEDICAL HISTORY: Shows previous surgeries include hysterectomy through a Pfannenstiel incision, appendectomy, inguinal hernia repair. She also has had tonsillectomy, shoulder and foot surgery as well as colonoscopy. She notes chronic diagnoses of cataracts, fibromyalgia, and depression. MEDICATIONS: Her current medications include: 1. Neurontin which she takes at bedtime. 2. Prednisone 5 mg a day. 3. Meloxicam. 4. Effexor. 5. Bupropion. ALLERGIES: She is allergic to amoxicillin, cephalexin, Remicade, and Arava. SOCIAL HISTORY: She is a former smoker. 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 FAMILY HISTORY: Notable for coronary artery disease and diabetes. REVIEW OF SYSTEMS: Shows no recent cough, cold, or sore throat symptoms. She is having no chest pain or palpitations. She notes that generally bowel function has been satisfactory over the past few months, although she has had some episodes of intermittent diarrhea. She has never had any symptoms similar to her current episode. She has no difficulty voiding and is not having any extremity swelling. PHYSICAL EXAMINATION: VITAL SIGNS: Blood pressure is 123/74, pulse 62, weight is 188 pounds, temperature is 98. GENERAL: The patient is an alert adult female. She is currently in no acute distress. HEENT: Head is normocephalic. No scleral icterus. NG tube is in place, 400 mL of gastric fluid was in the container. HEART: Regular without murmur. LUNGS: Clear. ABDOMEN: The patient's abdomen shows moderate distention in the upper aspect with some tympany. There is no tenderness to palpation and I do not feel any other abdominal masses and no evidence of hernia formation is noted. EXTREMITIES: No ankle edema. No calf induration or tenderness. NEUROLOGIC: Shows the patient to be alert without gross deficit. DIAGNOSTIC DATA: CT scan report and films are reviewed and confirm findings consistent with small bowel obstruction. Also, chest x-ray taken today shows persistence of dilated loops of small bowel. Laboratory studies show normal serum white blood cell count and hemoglobin and a potassium this morning of 3.8 with normal liver function tests. IMPRESSION: Small bowel obstruction. RECOMMENDATIONS: With persistence of the patient's symptoms and without evidence of resolution with conservative measures, we will observe the patient for short additional time, but if clinically patient not showing significant improvement over the next few hours, feel exploratory laparotomy with release of small bowel obstruction is indicated. I have discussed this proposed procedure with the patient. She was in agreement with this plan and we will check with her later on this afternoon and proceed pending her clinical course. /[id number] DELPHINE/JOSTIN
[2020-04-13] MEDS: D5 1/2 NS w/ 20 mEq/L KCl 1,000 ML IV SCH (20:45)
[2020-04-14] MEDS: D5 1/2 NS w/ 20 mEq/L KCl 1,000 ML IV SCH ×2 (04:43→13:29)
--- NOTE | 2020-04-14 07:47 | PCM.PN ---
- General Info Date of Service: 04/14/20 - Review of Systems Pulmonary: Reports: No Symptoms Cardiovascular: Reports: Other (some mid chest pain with NG) Gastrointestinal: Reports: Flatus (passed flatus several times last night but no BM) Genitourinary: Reports: No Symptoms - Patient Data Vitals - Most Recent: Last Vital Signs Temp 98.2 F 04/14/20 01:30 Pulse 84 04/14/20 04:54 Resp 18 04/14/20 04:54 BP 134/69 04/14/20 04:54 Pulse Ox 93 L 04/14/20 04:54 Weight - Most Recent: 188 lb 6.4 oz I&O - Last 24 Hours: Intake & Output 04/13/20 04/14/20 04/14/20 22:59 06:59 14:59 Intake Total 2096 961 Output Total 750 1200 Balance 1346 -239 Lab Results Last 24 Hours: Laboratory Results - last 24 hr 04/13/20 04/14/20 Range/Units 06:30 06:15 Sodium 144 141 (135-145) mmol/L Potassium 3.8 3.9 (3.5-5.3) mmol/L Chloride 107 107 (100-110) mmol/L Carbon Dioxide 31 27 (21-32) mmol/L BUN 11 6 L (7-18) mg/dL Creatinine 0.9 0.8 (0.55-1.02) mg/dL Est Cr Clr Drug Dosing 61.45 69.13 mL/min Estimated GFR (MDRD) > 60 > 60 (>60) BUN/Creatinine Ratio 12.2 7.5 L (9-20) Glucose 124 H 115 (80-116) mg/dL Calcium 8.8 8.4 L (8.6-10.2) mg/dL Magnesium 2.0 (1.8-2.5) mg/dL Total Bilirubin 0.4 (0.1-1.3) mg/dL AST 22 (5-25) IU/L ALT 23 D (12-36) U/L Alkaline Phosphatase 75 (56-112) IU/L Total Protein 6.1 (6.0-8.0) g/dL Albumin 3.2 (3.2-4.6) g/dL Globulin 2.9 g/dL Albumin/Globulin Ratio 1.1 Med Orders - Current: Current Medications Hydromorphone HCl (Dilaudid) 0.5 mg IVPUSH Q2H PRN PRN Reason: Pain (severe 7-10) Last Admin: 04/13/20 08:23 Dose: 0.5 mg Documented by: Hydroxyzine HCl (Vistaril) 50 mg IM Q8H PRN PRN Reason: Nausea Last Admin: 04/13/20 08:23 Dose: 50 mg Documented by: Potassium Chloride/Dextrose/Sod Cl (D5 1/2 Ns W/ 20 Meq/L Kcl) 1,000 mls @ 125 mls/hr IV [facility] Last Admin: 04/14/20 04:43 Dose: 125 mls/hr Documented by: Ondansetron HCl (Zofran) 4 mg IVPUSH Q4H PRN PRN Reason: Nausea/Vomiting Last Admin: 04/13/20 05:52 Dose: 4 mg Documented by: Sodium Chloride (Saline Flush) 10 ml FLUSH ASDIRECTED PRN PRN Reason: Keep Vein Open Last Admin: 04/12/20 16:20 Dose: 10 ml Documented by: Discontinued Medications Hydrocortisone Sodium Succinate (Solu-Cortef) 100 mg IVPUSH ONETIME ONE Stop: 04/12/20 20:34 Last Admin: 04/12/20 20:37 Dose: 100 mg Documented by: Hydromorphone HCl (Dilaudid) 1 mg IVPUSH ONETIME ONE Stop: 04/12/20 16:17 Last Admin: 04/12/20 16:31 Dose: 1 mg Documented by: Sodium Chloride (Normal Saline) 500 mls @ 999 mls/hr IV .BOLUS ONE Stop: 04/12/20 16:46 Last Admin: 04/12/20 16:30 Dose: 999 mls/hr Documented by: Sodium Chloride (Normal Saline) 1,000 mls @ 150 mls/hr [facility] Last Admin: 04/13/20 13:57 Dose: 150 mls/hr Documented by: Iopamidol (Isovue-370 (76%)) 100 ml IV . DIRECTED ONE Stop: 04/12/20 17:55 Last Admin: 04/12/20 18:11 Dose: 75 ml Documented by: Lidocaine HCl (Glydo) 6 ml .XX ONETIME ONE Stop: 04/13/20 09:37 Last Admin: 04/13/20 10:10 Dose: 6 ml Documented by: Ondansetron HCl (Zofran) 4 mg IVPUSH ONETIME ONE Stop: 04/12/20 16:17 Last Admin: 04/12/20 16:30 Dose: 4 mg Documented by: Ondansetron HCl (Zofran) 4 mg IVPUSH ONETIME ONE Stop: 04/12/20 17:42 Last Admin: 04/12/20 18:08 Dose: 4 mg Documented by: Ondansetron HCl (Zofran) 4 mg IV Q6H PRN PRN Reason: Nausea/Vomiting Last Admin: 04/13/20 00:34 Dose: 4 mg Documented by: - Exam General: Alert, Oriented Lungs: Normal Respiratory Effort GI/Abdominal Exam: Soft, Distended (remains distended in upper aspect), Tender (moderte direct tenderness), Other (NG output low during the night) Sepsis Event Note - Evaluation Sepsis Screening Result: No Definite Risk - Focused Exam Vital Signs: Vital Signs Temp Pulse Resp BP Pulse Ox 04/14/20 04:54 84 18 134/69 93 L 04/14/20 01:30 98.2 F 81 20 134/77 95 04/13/20 21:30 98.6 F 71 18 131/84 95 - Problem List Review Problem List Initiated/Reviewed/Updated: Yes - Assessment Assessment:: SBO - appears to be partially resolving as NG output low and passing small amount of flatus - Plan Plan:: Will remove NG but remain NPO Patient encouraged to ambulate
--- NOTE | 2020-04-14 08:48 | PCM.PN ---
- General Info Date of Service: 04/14/20 Admission Dx/Problem (Free Text): Patient states she still has some distention but her pain is much better than yesterday. She is passing some gas. I did the visit with the surgeon today and she would like to get the nasogastric tube out. He basically told her that we would do this and do nothing by mouth and continue the fluids and if she does well progressive not she would end up with surgery. She is agreeable to this. The nasogastric tube was discontinued. The patient had a BM. I conferred with the surgeon he is agreeable to start some clear liquids and give her pills by mouth. She has no fevers, chills, nausea or vomiting. - Patient Data Vitals - Most Recent: Last Vital Signs Temp 98.2 F 04/14/20 01:30 Pulse 84 04/14/20 04:54 Resp 18 04/14/20 04:54 BP 134/69 04/14/20 04:54 Pulse Ox 93 L 04/14/20 04:54 Weight - Most Recent: 188 lb 6.4 oz I&O - Last 24 Hours: Intake & Output 04/13/20 04/14/20 04/14/20 22:59 06:59 14:59 Intake Total 2096 961 Output Total 750 1200 Balance 1346 -239 Lab Results Last 24 Hours: Laboratory Results - last 24 hr 04/13/20 04/14/20 Range/Units 06:30 06:15 Sodium 141 (135-145) mmol/L Potassium 3.9 (3.5-5.3) mmol/L Chloride 107 (100-110) mmol/L Carbon Dioxide 27 (21-32) mmol/L BUN 6 L (7-18) mg/dL Creatinine 0.8 (0.55-1.02) mg/dL Est Cr Clr Drug Dosing 69.13 mL/min Estimated GFR (MDRD) > 60 (>60) BUN/Creatinine Ratio 7.5 L (9-20) Glucose 115 (80-116) mg/dL Calcium 8.8 8.4 L (8.6-10.2) mg/dL Med Orders - Current: Current Medications Hydromorphone HCl (Dilaudid) 0.5 mg IVPUSH Q2H PRN PRN Reason: Pain (severe 7-10) Last Admin: 04/13/20 08:23 Dose: 0.5 mg Documented by: Hydroxyzine HCl (Vistaril) 50 mg IM Q8H PRN PRN Reason: Nausea Last Admin: 04/13/20 08:23 Dose: 50 mg Documented by: Potassium Chloride/Dextrose/Sod Cl (D5 1/2 Ns W/ 20 Meq/L Kcl) 1,000 mls @ 125 mls/hr IV ASDIRECTED [facility] Last Admin: 04/14/20 04:43 Dose: 125 mls/hr Documented by: Ondansetron HCl (Zofran) 4 mg IVPUSH Q4H PRN PRN Reason: Nausea/Vomiting Last Admin: 04/13/20 05:52 Dose: 4 mg Documented by: Sodium Chloride (Saline Flush) 10 ml FLUSH ASDIRECTED PRN PRN Reason: Keep Vein Open Last Admin: 04/12/20 16:20 Dose: 10 ml Documented by: Discontinued Medications Hydrocortisone Sodium Succinate (Solu-Cortef) 100 mg IVPUSH ONETIME ONE Stop: 04/12/20 20:34 Last Admin: 04/12/20 20:37 Dose: 100 mg Documented by: Hydromorphone HCl (Dilaudid) 1 mg IVPUSH ONETIME ONE Stop: 04/12/20 16:17 Last Admin: 04/12/20 16:31 Dose: 1 mg Documented by: Sodium Chloride (Normal Saline) 500 mls @ 999 mls/hr IV .BOLUS ONE Stop: 04/12/20 16:46 Last Admin: 04/12/20 16:30 Dose: 999 mls/hr Documented by: Sodium Chloride (Normal Saline) 1,000 mls @ 150 mls/hr IV ASDIRECTED [facility] Last Admin: 04/13/20 13:57 Dose: 150 mls/hr Documented by: Iopamidol (Isovue-370 (76%)) 100 ml IV . DIRECTED ONE Stop: 04/12/20 17:55 Last Admin: 04/12/20 18:11 Dose: 75 ml Documented by: Lidocaine HCl (Glydo) 6 ml .XX ONETIME ONE Stop: 04/13/20 09:37 Last Admin: 04/13/20 10:10 Dose: 6 ml Documented by: Ondansetron HCl (Zofran) 4 mg IVPUSH ONETIME ONE Stop: 04/12/20 16:17 Last Admin: 04/12/20 16:30 Dose: 4 mg Documented by: Ondansetron HCl (Zofran) 4 mg IVPUSH ONETIME ONE Stop: 04/12/20 17:42 Last Admin: 04/12/20 18:08 Dose: 4 mg Documented by: Ondansetron HCl (Zofran) 4 mg IV Q6H PRN PRN Reason: Nausea/Vomiting Last Admin: 04/13/20 00:34 Dose: 4 mg Documented by: - Exam General: Alert, Oriented Lungs: Clear to Auscultation, Normal Respiratory Effort GI/Abdominal Exam: Normal Bowel Sounds, Soft, Non-Tender, Distended (Mild) Extremities: No Pedal Edema Sepsis Event Note - Evaluation Sepsis Screening Result: No Definite Risk - Focused Exam Vital Signs: Vital Signs Temp Pulse Resp BP Pulse Ox 04/14/20 04:54 84 18 134/69 93 L 04/14/20 01:30 98.2 F 81 20 134/77 95 04/13/20 21:30 98.6 F 71 18 131/84 95 - Problem List & Annotations (1) Rheumatoid arthritis SNOMED Code(s): 26207621 Code(s): M06.9 - RHEUMATOID ARTHRITIS, UNSPECIFIED Status: Acute Current Visit: Yes (2) Small bowel obstruction SNOMED Code(s): 935479651 Code(s): K56.609 - UNSP INTESTNL OBST, UNSP TO PARTIAL VERSUS COMPLETE OBST Status: Acute Current Visit: Yes (3) Vomiting SNOMED Code(s): 722872451 Code(s): R11.10 - VOMITING, UNSPECIFIED Status: Acute Current Visit: No Qualifiers: Vomiting type: unspecified Vomiting Intractability: non-intractable Nausea presence: with nausea Qualified Code(s): R11.2 - Nausea with vomiting, unspecified - Problem List Review Problem List Initiated/Reviewed/Updated: Yes - My Orders Last 24 Hours: My Active Orders 04/13/20 08:22 Up ad [place] [RC] ASDIRECTED 04/13/20 08:23 Notify Provider Consults [RC] ASDIRECTED Consult to Physician [CONS] Routine 04/13/20 09:44 Admission Status [Patient Status] [ADT] Routine 04/13/20 17:30 D5 1/2 NS w/ 20 mEq/L KCl 1,000 ml IV ASDIRECTED 04/14/20 08:31 Nasogastric Orogastric Tube Removal [OM.PC] Routine - Assessment Assessment:: SBO - appears to be partially resolving as NG output low and passing small amount of flatus - Plan Plan:: Will remove NG . Pills and start clear liquids.
[2020-04-14] MEDS: Venlafaxine 150 MG Cap.ER PO SCH (09:44)
[2020-04-14] MEDS: Folic Acid 1 MG Tab PO SCH (09:44)
[2020-04-14] MEDS: predniSONE 5 MG Tab PO SCH (09:45)
[2020-04-14] MEDS: buPROPion 150 MG Tab.ER PO SCH (09:45)
[2020-04-14] MEDS ORDERED: Methotrexate 2.5 MG Tab PO SCH (10:00)
[2020-04-14] MEDS ORDERED: Gabapentin 300 MG Cap PO SCH (18:00)
[2020-04-15] MEDS: D5 1/2 NS w/ 20 mEq/L KCl 1,000 ML IV SCH (03:15)
--- NOTE | 2020-04-15 07:50 | PCM.PN ---
- General Info Date of Service: 04/15/20 Admission Dx/Problem (Free Text): SBO now resolving - Review of Systems Pulmonary: Reports: No Symptoms Gastrointestinal: Reports: Flatus, Other (Had multiple stools yesterday, Tolerated some liquids PO yesterday). Denies: Nausea, Vomiting Musculoskeletal: Reports: No Symptoms - Patient Data Vitals - Most Recent: Last Vital Signs Temp 98.1 F 04/15/20 03:30 Pulse 72 04/15/20 03:30 Resp 18 04/15/20 03:30 BP 95/60 04/15/20 03:30 Pulse Ox 96 04/15/20 03:30 Weight - Most Recent: 188 lb 6.4 oz I&O - Last 24 Hours: Intake & Output 04/14/20 04/15/20 04/15/20 22:59 06:59 14:59 Intake Total 1636 527 Output Total 600 300 Balance 1036 227 Med Orders - Current: Current Medications Bupropion HCl (Wellbutrin Xl) 150 mg PO DAILY [facility] Last Admin: 04/14/20 09:45 Dose: 150 mg Documented by: Folic Acid (Folic Acid) 1 mg PO DAILY [facility] Last Admin: 04/14/20 09:44 Dose: 1 mg Documented by: Gabapentin (Neurontin) 300 mg PO DAILY@1800 [facility] Last Admin: 04/14/20 18:18 Dose: 300 mg Documented by: Hydromorphone HCl (Dilaudid) 0.5 mg IVPUSH Q2H PRN PRN Reason: Pain (severe 7-10) Last Admin: 04/13/20 08:23 Dose: 0.5 mg Documented by: Hydroxyzine HCl (Vistaril) 50 mg IM Q8H PRN PRN Reason: Nausea Last Admin: 04/13/20 08:23 Dose: 50 mg Documented by: Potassium Chloride/Dextrose/Sod Cl (D5 1/2 Ns W/ 20 Meq/L Kcl) 1,000 mls @ 70 mls/hr IV Q14H [facility] Last Admin: 04/15/20 03:15 Dose: 70 mls/hr Documented by: Methotrexate (Methotrexate) 17.5 mg PO MO [facility] Last Admin: 04/14/20 10:50 Dose: 17.5 mg Documented by: Non-Formulary Medication (Etanercept [Enbrel Sureclick]) 50 mg SUBCUT FR [facility] Ondansetron HCl (Zofran) 4 mg IVPUSH Q4H PRN PRN Reason: Nausea/Vomiting Last Admin: 04/13/20 05:52 Dose: 4 mg Documented by: Prednisone (Prednisone) 5 mg PO DAILY [facility] Last Admin: 04/14/20 09:45 Dose: 5 mg Documented by: Sodium Chloride (Saline Flush) 10 ml FLUSH ASDIRECTED PRN PRN Reason: Keep Vein Open Last Admin: 04/12/20 16:20 Dose: 10 ml Documented by: Venlafaxine HCl (Effexor Xr) 150 mg PO DAILY [facility] Last Admin: 04/14/20 09:44 Dose: 150 mg Documented by: Discontinued Medications Hydrocortisone Sodium Succinate (Solu-Cortef) 100 mg IVPUSH ONETIME ONE Stop: 04/12/20 20:34 Last Admin: 04/12/20 20:37 Dose: 100 mg Documented by: Hydromorphone HCl (Dilaudid) 1 mg IVPUSH ONETIME ONE Stop: 04/12/20 16:17 Last Admin: 04/12/20 16:31 Dose: 1 mg Documented by: Sodium Chloride (Normal Saline) 500 mls @ 999 mls/hr IV .BOLUS ONE Stop: 04/12/20 16:46 Last Admin: 04/12/20 16:30 Dose: 999 mls/hr Documented by: Sodium Chloride (Normal Saline) 1,000 [facility]ls [facility] Admin: 04/13/20 13:57 Dose: 150 mls/hr Documented by: Potassium Chloride/Dextrose/Sod Cl (D5 1/2 Ns W/ 20 Meq/L Kcl) 1,000 mls @ 125 [facility] Last Admin: 04/14/20 04:43 Dose: 125 mls/hr Documented by: Iopamidol (Isovue-370 (76%)) 100 ml IV . DIRECTED ONE Stop: 04/12/20 17:55 Last Admin: 04/12/20 18:11 Dose: 75 ml Documented by: Lidocaine HCl (Glydo) 6 ml .XX ONETIME ONE Stop: 04/13/20 09:37 Last Admin: 04/13/20 10:10 Dose: 6 ml Documented by: Ondansetron HCl (Zofran) 4 mg IVPUSH ONETIME ONE Stop: 04/12/20 16:17 Last Admin: 04/12/20 16:30 Dose: 4 mg Documented by: Ondansetron HCl (Zofran) 4 mg IVPUSH ONETIME ONE Stop: 04/12/20 17:42 Last Admin: 04/12/20 18:08 Dose: 4 mg Documented by: Ondansetron HCl (Zofran) 4 mg IV Q6H PRN PRN Reason: Nausea/Vomiting Last Admin: 04/13/20 00:34 Dose: 4 mg Documented by: - Exam General: Alert, Oriented Lungs: Normal Respiratory Effort GI/Abdominal Exam: Soft, Distended (Mild in upper abdomen but improved from yesterday), Tender (mild in upper abdomen) Sepsis Event Note - Evaluation Sepsis Screening Result: No Definite Risk - Focused Exam Vital Signs: Vital Signs Temp Pulse Resp BP Pulse Ox 04/15/20 03:30 98.1 F 72 18 95/60 96 04/15/20 00:00 16 04/14/20 20:30 98.1 F 74 18 124/79 95 - Problem List Review Problem List Initiated/Reviewed/Updated: Yes - Assessment Assessment:: SBO - appears to be resolving with return of GI function - Plan Plan:: Will try to advance diet and if tolerates may consider discharge Soft diet at home and follow up with me in about 1 week
--- NOTE | 2020-04-15 08:13 | PCM.PN ---
- General Info Date of Service: 04/15/20 Admission Dx/Problem (Free Text): Patient states she had more bowel movements yesterday afternoon and hasn't passing flatus. She is tolerating clear liquids. She has just a little bit discomfort epigastrium but her distention is going down. No blood in her stool, nausea or vomiting. - Patient Data Vitals - Most Recent: Last Vital Signs Temp 98.1 F 04/15/20 03:30 Pulse 72 04/15/20 03:30 Resp 18 04/15/20 03:30 BP 95/60 04/15/20 03:30 Pulse Ox 96 04/15/20 03:30 Weight - Most Recent: 188 lb 6.4 oz I&O - Last 24 Hours: Intake & Output 04/14/20 04/15/20 04/15/20 22:59 06:59 14:59 Intake Total 1636 527 Output Total 600 300 Balance 1036 227 Med Orders - Current: Current Medications Bupropion HCl (Wellbutrin Xl) 150 mg PO DAILY [facility] Last Admin: 04/14/20 09:45 Dose: 150 mg Documented by: Folic Acid (Folic Acid) 1 mg PO DAILY [facility] Last Admin: 04/14/20 09:44 Dose: 1 mg Documented by: Gabapentin (Neurontin) 300 mg PO DAILY@1800 [facility] Last Admin: 04/14/20 18:18 Dose: 300 mg Documented by: Hydromorphone HCl (Dilaudid) 0.5 mg IVPUSH Q2H PRN PRN Reason: Pain (severe 7-10) Last Admin: 04/13/20 08:23 Dose: 0.5 mg Documented by: Hydroxyzine HCl (Vistaril) 50 mg IM Q8H PRN PRN Reason: Nausea Last Admin: 04/13/20 08:23 Dose: 50 mg Documented by: Potassium Chloride/Dextrose/Sod Cl (D5 1/2 Ns W/ 20 Meq/L Kcl) 1,000 mls @ 70 mls/hr IV Q14H [facility] Last Admin: 04/15/20 03:15 Dose: 70 mls/hr Documented by: Methotrexate (Methotrexate) 17.5 mg PO MO [facility] Last Admin: 04/14/20 10:50 Dose: 17.5 mg Documented by: Non-Formulary Medication (Etanercept [Enbrel Sureclick]) 50 mg SUBCUT FR [facility] Ondansetron HCl (Zofran) 4 mg IVPUSH Q4H PRN PRN Reason: Nausea/Vomiting Last Admin: 04/13/20 05:52 Dose: 4 mg Documented by: Prednisone (Prednisone) 5 mg PO DAILY [facility] Last Admin: 04/14/20 09:45 Dose: 5 mg Documented by: Sodium Chloride (Saline Flush) 10 ml FLUSH ASDIRECTED PRN PRN Reason: Keep Vein Open Last Admin: 04/12/20 16:20 Dose: 10 ml Documented by: Venlafaxine HCl (Effexor Xr) 150 mg PO DAILY [facility] Last Admin: 04/14/20 09:44 Dose: 150 mg Documented by: Discontinued Medications Hydrocortisone Sodium Succinate (Solu-Cortef) 100 mg IVPUSH ONETIME ONE Stop: 04/12/20 20:34 Last Admin: 04/12/20 20:37 Dose: 100 mg Documented by: Hydromorphone HCl (Dilaudid) 1 mg IVPUSH ONETIME ONE Stop: 04/12/20 16:17 Last Admin: 04/12/20 16:31 Dose: 1 mg Documented by: Sodium Chloride (Normal Saline) 500 mls @ 999 mls/hr IV .BOLUS ONE Stop: 04/12/20 16:46 Last Admin: 04/12/20 16:30 Dose: 999 mls/hr Documented by: Sodium Chloride (Normal Saline) 1,000 mls @ 150 [facility] Last Admin: 04/13/20 13:57 Dose: 150 mls/hr Documented by: Potassium Chloride/Dextrose/Sod Cl (D5 1/2 Ns W/ 20 Meq/L Kcl) 1,000 mls @ 125 mls/hr IV ASDIRECTED [facility] Last Admin: 04/14/20 04:43 Dose: 125 mls/hr Documented by: Iopamidol (Isovue-370 (76%)) 100 ml IV . DIRECTED ONE Stop: 04/12/20 17:55 Last Admin: 04/12/20 18:11 Dose: 75 ml Documented by: Lidocaine HCl (Glydo) 6 ml .XX ONETIME ONE Stop: 04/13/20 09:37 Last Admin: 04/13/20 10:10 Dose: 6 ml Documented by: Ondansetron HCl (Zofran) 4 mg IVPUSH ONETIME ONE Stop: 04/12/20 16:17 Last Admin: 04/12/20 16:30 Dose: 4 mg Documented by: Ondansetron HCl (Zofran) 4 mg IVPUSH ONETIME ONE Stop: 04/12/20 17:42 Last Admin: 04/12/20 18:08 Dose: 4 mg Documented by: Ondansetron HCl (Zofran) 4 mg IV Q6H PRN PRN Reason: Nausea/Vomiting Last Admin: 04/13/20 00:34 Dose: 4 mg Documented by: - Exam Lungs: Normal Respiratory Effort GI/Abdominal Exam: Normal Bowel Sounds, Soft, Non-Tender, Distended (Improved) Sepsis Event Note - Evaluation Sepsis Screening Result: No Definite Risk - Focused Exam Vital Signs: Vital Signs Temp Pulse Resp BP Pulse Ox 04/15/20 03:30 98.1 F 72 18 95/60 96 04/15/20 00:00 16 04/14/20 20:30 98.1 F 74 18 124/79 95 - Problem List & Annotations (1) Rheumatoid arthritis SNOMED Code(s): 97938380 Code(s): M06.9 - RHEUMATOID ARTHRITIS, UNSPECIFIED Status: Acute Current Visit: Yes (2) Small bowel obstruction SNOMED Code(s): 370570722 Code(s): K56.609 - UNSP INTESTNL OBST, UNSP TO PARTIAL VERSUS COMPLETE OBST Status: Acute Current Visit: Yes (3) Vomiting SNOMED Code(s): 186616424 Code(s): R11.10 - VOMITING, UNSPECIFIED Status: Acute Current Visit: No Qualifiers: Vomiting type: unspecified Vomiting Intractability: non-intractable Nausea presence: with nausea Qualified Code(s): R11.2 - Nausea with vomiting, unspecified - Problem List Review Problem List Initiated/Reviewed/Updated: Yes - My Orders Last 24 Hours: My Active Orders 04/14/20 08:31 Nasogastric Orogastric Tube Removal [OM.PC] Routine 04/14/20 09:00 Folic Acid 1 mg PO DAILY Venlafaxine [Effexor XR] 150 mg PO DAILY buPROPion [Wellbutrin XL] 150 mg PO DAILY predniSONE 5 mg PO DAILY 04/14/20 10:00 Methotrexate 17.5 mg PO MO 04/14/20 13:15 D5 1/2 NS w/ 20 mEq/L KCl 1,000 ml IV Q14H 04/14/20 18:00 Gabapentin [Neurontin] 300 mg PO DAILY@1800 04/15/20 Lunch Soft Diet [DIET] 04/17/20 08:48 Etanercept [Enbrel Sureclick] 50 mg SUBCUT FR - Assessment Assessment:: SBO - appears to be resolving with return of GI function - Plan Plan:: Will try to advance diet and if tolerates may consider discharge Soft diet at home and follow up with me in about 1 week DC IV fluids and saline lock IV.
[2020-04-15] MEDS: predniSONE 5 MG Tab PO SCH (08:31)
[2020-04-15] MEDS: Venlafaxine 150 MG Cap.ER PO SCH (08:31)
[2020-04-15] MEDS: buPROPion 150 MG Tab.ER PO SCH (08:31)
[2020-04-15] MEDS: Folic Acid 1 MG Tab PO SCH (08:31)
--- NOTE | 2020-04-15 12:44 | PCM.SN.2 ---
- Free Text/Narrative Note: Patient tolerated a soft diet and had 2 BMs today. We'll discharge her home on soft diet and follow up with surgery next week.
--- NOTE | 2020-04-15 13:12 | PCM.DCSUM1 ---
Discharge Summary - Hospital Course Free Text/Narrative:: Hospital course-patient was admitted for pain control with Dilaudid and Zofran. When I saw her in the morning I place an NG tube which made her feel much better. She was seen by Dr. Garland who agreed with the plan. The next day by the evening. She started passing some gas and we give her some clear liquids. She clear liquids the next day and started having BMs and doing fine. On the day of discharge we actually gave her soft diet 2 and she has some BMs and past flatus. She just a little discomfort at the end but her distention was going down and she was feeling much better. Her electrolytes remained relatively stable although her calcium dropped a little bit. After we had given her clear liquids we restarted her by mouth medication. She was given Solu- Medrol initially because of stress secondary to her being on 5 mg prednisone a day for her RA. Brief History: This is a 59-year-old female patient that had a breakfast skillet with eggs, hashbrowns, sausage and cheese and afterwards started having severe abdominal epigastric pain. She said she had 2 diarrhea stools in the morning before her breakfast. She came to the ER by car because she thought she is on a gallbladder attack. She says she did talk to Dr. Flaherty because he has done operations on her in the past. She had a CT scan that showed a small bowel structure. She's had a hernia repair and hysterectomy in the past. She has abdominal pain with nausea. She vomited once this morning. She's not had any flatus or BM. She's never the small bowel obstruction before. She denies dysuria, pyuria, hematuria. She was having some sweating but no fevers. ER note reviewed. Diagnosis: Stroke: No - Discharge Data Discharge Date: 04/15/20 Discharge Disposition: Home, Self-Care 01 Condition: Good - Referral to Home Health Primary Care Physician: Mishel Everett NP - Discharge Diagnosis/Problem(s) (1) Rheumatoid arthritis SNOMED Code(s): 30271300 ICD Code: M06.9 - RHEUMATOID ARTHRITIS, UNSPECIFIED Status: Acute Current Visit: Yes (2) Small bowel obstruction SNOMED Code(s): 983975351 ICD Code: K56.609 - UNSP INTESTNL OBST, UNSP TO PARTIAL VERSUS COMPLETE OBST Status: Acute Current Visit: Yes (3) Vomiting SNOMED Code(s): 092698130 ICD Code: R11.10 - VOMITING, UNSPECIFIED Status: Acute Current Visit: No Qualifiers: Vomiting type: unspecified Vomiting Intractability: non-intractable Nausea presence: with nausea Qualified Code(s): R11.2 - Nausea with vomiting, unspecified - Patient Summary/Data Consults: Consultations 04/13/20 08:23 Consult to Physician [CONS] Routine Consulting Provider: Krystian Lees Call Completed to Consulting Physician: Yes Reason for Consult: SBO - Patient Instructions Diet, Other: Soft diet Activity: As Tolerated Driving: May Drive Today Showering/Bathing: December Shower Notify Provider of: Fever, Increased Pain Other/Special Instructions: Recheck with Dr. Krystian Garland in 1 week. - Discharge Plan Home Medications: Home Meds Folic Acid 1 mg PO DAILY 05/08/17 [History] Gabapentin [Neurontin] 300 mg PO DAILY@1800 05/08/17 [History] predniSONE [Prednisone] 5 mg PO DAILY 05/08/17 [History] buPROPion [buPROPion XL] 150 mg PO DAILY 04/23/19 [History] Calcium Carbonate [Calcium] 500 mg PO DAILY 04/13/20 [History] Etanercept [Enbrel Sureclick] 50 mg SUBCUT FR 04/13/20 [History] Fish Oil/[place]-3 Fatty Acids [Fish Oil 1,000 MG] 1 gm PO DAILY 04/13/20 [History] Methotrexate 17.5 mg PO MO 04/13/20 [History] Venlafaxine HCl [Venlafaxine ER] 150 mg PO DAILY 04/13/20 [History] diphenhydrAMINE [Benadryl] 25 mg PO DAILY@1800 04/13/20 [History] Patient Handouts: Bowel Obstruction, [id number] Forms: ED Department Discharge Referrals: Mishel Everett, [employer] [Primary Care Provider] - - Discharge Summary/Plan Comment DC Time >30 min.: No - Patient Data Vitals - Most Recent: Last Vital Signs Temp 98.1 F 04/15/20 03:30 Pulse 72 04/15/20 03:30 Resp 18 04/15/20 03:30 BP 95/60 08/26/20 03:30 Pulse Ox 96 04/15/20 03:30 Weight - Most Recent: 188 lb 6.4 oz I&O - Last 24 hours: Intake & Output 04/14/20 04/15/20 04/15/20 22:59 06:59 14:59 Intake Total 1636 527 Output Total 600 300 Balance 1036 227 Med Orders - Current: Current Medications Bupropion HCl (Wellbutrin Xl) 150 mg PO DAILY [facility] Last Admin: 04/15/20 08:31 Dose: 150 mg Documented by: Folic Acid (Folic Acid) 1 mg PO DAILY [facility] Last Admin: 04/15/20 08:31 Dose: 1 mg Documented by: Gabapentin (Neurontin) 300 mg PO DAILY@1800 [facility] Last Admin: 04/14/20 18:18 Dose: 300 mg Documented by: Hydromorphone HCl (Dilaudid) 0.5 mg IVPUSH Q2H PRN PRN Reason: Pain (severe 7-10) Last Admin: 04/13/20 08:23 Dose: 0.5 mg Documented by: Hydroxyzine HCl (Vistaril) 50 mg IM Q8H PRN PRN Reason: Nausea Last Admin: 04/13/20 08:23 Dose: 50 mg Documented by: Potassium Chloride/Dextrose/Sod Cl (D5 1/2 Ns W/ 20 Meq/L Kcl) 1,000 mls @ 70 mls/hr IV Q14H [facility] Last Admin: 04/15/20 03:15 Dose: 70 mls/hr Documented by: Methotrexate (Methotrexate) 17.5 mg PO MO [facility] Last Admin: 04/14/20 10:50 Dose: 17.5 mg Documented by: Non-Formulary Medication (Etanercept [Enbrel Sureclick]) 50 mg SUBCUT FR [facility] Ondansetron HCl (Zofran) 4 mg IVPUSH Q4H PRN PRN Reason: Nausea/Vomiting Last Admin: 04/13/20 05:52 Dose: 4 mg Documented by: Prednisone (Prednisone) 5 mg PO DAILY [facility] Last Admin: 04/15/20 08:31 Dose: 5 mg Documented by: Sodium Chloride (Saline Flush) 10 ml FLUSH ASDIRECTED PRN PRN Reason: Keep Vein Open Last Admin: 04/12/20 16:20 Dose: 10 ml Documented by: Venlafaxine HCl (Effexor Xr) 150 mg PO DAILY [facility] Last Admin: 04/15/20 08:31 Dose: 150 mg Documented by: Discontinued Medications Hydrocortisone Sodium Succinate (Solu-Cortef) 100 mg IVPUSH ONETIME ONE Stop: 04/12/20 20:34 Last Admin: 04/12/20 20:37 Dose: 100 mg Documented by: Hydromorphone HCl (Dilaudid) 1 mg IVPUSH ONETIME ONE Stop: 04/12/20 16:17 Last Admin: 04/12/20 16:31 Dose: 1 mg Documented by: Sodium Chloride (Normal Saline) 500 mls @ 999 mls/hr IV .BOLUS ONE Stop: 04/12/20 16:46 Last Admin: 04/12/20 16:30 Dose: 999 mls/hr Documented by: Sodium Chloride (Normal Saline) 1,000 mls @ 150 [facility] Last Admin: 04/13/20 13:57 Dose: 150 mls/hr Documented by: Potassium Chloride/Dextrose/Sod Cl (D5 1/2 Ns W/ 20 Meq/L Kcl) 1,000 mls @ 125 mls[facility] Last Admin: 04/14/20 04:43 Dose: 125 mls/hr Documented by: Iopamidol (Isovue-370 (76%)) 100 ml IV . DIRECTED ONE Stop: 04/12/20 17:55 Last Admin: 04/12/20 18:11 Dose: 75 ml Documented by: Lidocaine HCl (Glydo) 6 ml .XX ONETIME ONE Stop: 04/13/20 09:37 Last Admin: 04/13/20 10:10 Dose: 6 ml Documented by: Ondansetron HCl (Zofran) 4 mg IVPUSH ONETIME ONE Stop: 04/12/20 16:17 Last Admin: 04/12/20 16:30 Dose: 4 mg Documented by: Ondansetron HCl (Zofran) 4 mg IVPUSH ONETIME ONE Stop: 04/12/20 17:42 Last Admin: 04/12/20 18:08 Dose: 4 mg Documented by: Ondansetron HCl (Zofran) 4 mg IV Q6H PRN PRN Reason: Nausea/Vomiting Last Admin: 04/13/20 00:34 Dose: 4 mg Documented by:
[2020-04-15 14:43] VITALS: BP 99/63; PULSE 78
[2020-04-17] MEDS ORDERED: ETANERCEPT 50 MG SUBCUT SCH (08:48)
== END 2020-04-15 13:20 | disposition home or self-care (01) | DRG 390 ==
LOC: FB.ED 15:57 → FB.MS 20:26 → OBSVTOIN 04-13 09:44
PROVIDERS: ADMIT Emergency Medicine; ATTEND Family Medicine
PROC: 0D9670Z Drainage of Stomach with Drainage Device, Via Natural or Artificial Opening (ICD-10-PCS; principal; 2020-04-13)
DX: K56.609 Unspecified intestinal obstruction, unspecified as to partial versus complete obstruction (principal); D84.9 Immunodeficiency, unspecified; M06.9 Rheumatoid arthritis, unspecified; M79.7 Fibromyalgia; F32.9 Major depressive disorder, single episode, unspecified; G47.00 Insomnia, unspecified; E66.9 Obesity, unspecified; F41.9 Anxiety disorder, unspecified; G62.9 Polyneuropathy, unspecified; H26.9 Unspecified cataract; Z96.619 Presence of unspecified artificial shoulder joint; Z90.89 Acquired absence of other organs; Z90.710 Acquired absence of both cervix and uterus; Z98.890 Other specified postprocedural states; Z79.899 Other long term (current) drug therapy; Z88.1 Allergy status to other antibiotic agents; Z88.8 Allergy status to other drugs, medicaments and biological substances; Z79.52 Long term (current) use of systemic steroids; Z90.49 Acquired absence of other specified parts of digestive tract; Z87.891 Personal history of nicotine dependence; K57.90 Diverticulosis of intestine, part unspecified, without perforation or abscess without bleeding
CPT/HCPCS: 36415; 43752; 74177; 80048; 80053; 83690; 83735; 85025; 86140; 96361; 96372; 96374; 96375; 96376; 99285-25; A9270-GY; G0378; J1170; J1720; J2405; J3410; J3480; J7030; J7040; J7512; J8610; Q9967